=== PATIENT | female | born 1955 ===

== ENCOUNTER 2019-08-18 08:14 | Outpatient (CLI) | payer OTHER ==
[~2019-08-18 08:14] MED LIST: BENADRYL25 MG PO; PEPCID40 MG PO; ZITHROMAX500 MG PO
== END 2019-08-18 15:00 | disposition home or self-care (01) ==
LOC: LAB SALUS 08:14
DX: Z13.220 Encounter for screening for lipoid disorders (principal); Z11.59 Encounter for screening for other viral diseases; Z13.1 Encounter for screening for diabetes mellitus; Z11.4 Encounter for screening for human immunodeficiency virus [HIV]; Z72.51 High risk heterosexual behavior; Z11.3 Encounter for screening for infections with a predominantly sexual mode of transmission; Z12.11 Encounter for screening for malignant neoplasm of colon; E11.65 Type 2 diabetes mellitus with hyperglycemia; I10 Essential (primary) hypertension